=== PATIENT | female | born 1935 | race Caucasian/White ===

== ENCOUNTER 2019-07-09 13:32 | Outpatient (CLI) | payer MEDICARE ==
--- NOTE | 2019-07-09 14:16 | BD ---
EXAM: Bone densitometry using DEXA HISTORY: 83 yo female. Screening for postmenopausal osteoporosis FINDINGS: L1--bone mineral density 1.006 g/sq cm; T score 0.1 L2--bone mineral density 1.090 g/sq cm; T score 0.6 L3--bone mineral density 1.061 g/sq cm; T score -0.2 L4--bone mineral density 1.173 g/sq cm; T score 1.0 Total L1-L4--bone mineral density 1.087 g/sq cm; T score 0.4 Left femoral neck--bone mineral density0.815; T score -0.3 Total proximal left femur--bone mineral density 0.858; T score -0.7 IMPRESSION: Normal BMD.
== END 2019-07-09 13:33 | disposition home or self-care (01) ==
LOC: BICMAMMO 13:32
PROVIDERS: ATTEND Internal Medicine Medical Oncology
DX: Z13.820 Encounter for screening for osteoporosis (principal); T38.6X5A Adverse effect of antigonadotrophins, antiestrogens, antiandrogens, not elsewhere classified, initial encounter; C50.919 Malignant neoplasm of unspecified site of unspecified female breast
CPT/HCPCS: 77080

== ENCOUNTER 2019-09-22 14:29 | Outpatient (CLI) | payer MEDICARE ==
--- NOTE | 2019-09-22 15:19 | MMO ---
Bilateral MAMMO Bilat Diag [facility]IT. CLINICAL HISTORY: Patient is 83 years old and is seen for diagnostic exam. The patient has the following family history of breast cancer: daughter and sister, malignant (generic). The patient has no personal history of cancer. 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 VIEWS: The views performed were: bilateral craniocaudal with tomosynthesis; bilateral mediolateral oblique with tomosynthesis; and bilateral mediolateral with tomosynthesis. FILMS COMPARED: The present examination has been compared to prior imaging studies performed at [facility] on 02/19/2009, 02/22/2010, 03/07/2011 and 12/12/2016. This study has been interpreted with the assistance of computer-aided detection. MAMMOGRAM FINDINGS: There are scattered fibroglandular densities. Finding 1: There is a post-surgical scar seen in the right breast. Finding 2: There are benign appearing calcifications seen in the left breast. There are no suspicious masses, suspicious calcifications, or new areas of architectural distortion. IMPRESSION: THERE IS NO MAMMOGRAPHIC EVIDENCE OF MALIGNANCY. A ROUTINE FOLLOW-UP MAMMOGRAM IN 1 YEAR IS RECOMMENDED. THE RESULTS OF THIS EXAM WERE SENT TO THE PATIENT. ACR BI-RADS Category 2 - Benign finding MAMMOGRAPHY NOTE: 1. A negative mammogram report should not delay a biopsy if a dominant of clinically suspicious mass is present. 2. Approximately 10% to 15% of breast cancers are not detected by mammography. 3. Adenosis and dense breasts may obscure an underlying neoplasm. Reported by: CHRIS HERNANDEZ MD Electonically Signed: [id number]
== END 2019-09-22 14:30 | disposition home or self-care (01) ==
LOC: BICMAMMO 14:29
PROVIDERS: ATTEND Internal Medicine Medical Oncology
DX: C50.411 Malignant neoplasm of upper-outer quadrant of right female breast (principal)
CPT/HCPCS: 77066; G0279

== ENCOUNTER 2019-09-29 08:00 | Outpatient (CLI) | payer MEDICARE ==
[2019-09-29 13:56] LABS: #Basophils 0.1 thou/uL (0.0-0.2); #Eosinphils 0.2 thou/uL (0.0-0.7); #Lymphocytes 2.9 thou/uL (1.20-3.40); #Monocytes 0.7 thou/uL (0.11-0.59); #Neutrophils 4.5 thou/uL (1.40-6.50); %Basophils 1.3 % (0.0-1.0); %Lymphocytes 34.6 % (21.0-51.0); %Monocytes 8.2 % (0.0-10.0); Mean Corpuscular HGB CONC 32.5 g/dL (32.0-36.0); Mean Corpuscular Hemoglobin 31.5 pg (27.0-31.0); Mean Platelet Volume 7.4 fL (7.4-10.4); Platelet Count 289 thou/uL (130-400); RBC Distribution Width 12.4 % (11.5-14.5); Red Blood Cell (RBC) Count 4.77 mill/uL (4.20-5.40); White Blood Cell (WBC) Count 8.3 thou/uL (4.8-10.8)
[2019-09-29 14:46] LABS: Anion Gap 12 mmol/L (10-20); BUN (Urea Nitrogen) 10 mg/dL (9.8-20.1); Calc. Creatinine Clearance 0 mL/min (70-130); Calcium 9.9 mg/dL (7.8-10.44); Carbon Dioxide 29 mmol/L (23-31); Chloride 103 mmol/L (98-107); Estimated GFR-MDRD 66; Glucose 66 mg/dL (83-110); Sodium 140 mmol/L (136-145)
--- NOTE | 2019-09-30 11:09 | EKG ---
Test Reason : Blood Pressure : / mmHG Vent. Rate : 074 BPM Atrial Rate : 074 BPM P-R Int : 138 ms QRS Dur : 114 ms QT Int : 390 ms P-R-T Axes : 081 090 -42 degrees QTc Int : 432 ms Normal sinus rhythm Rightward axis ST elevation consider lateral injury or acute infarct Baseline Artifact Present Abnormal ECG When compared with ECG of 02-JAN-2017 11:32, Questionable change in QRS axis ST more depressed in Inferior leads Non-specific change in ST segment in Lateral leads T wave inversion now evident in Inferior leads Confirmed by DR. Becca BEDOYA ([id number]) on 09/30/2019 11:08:58 AM Referred By: APOLLO Confirmed By:DR. Becca BEDOYA
== END 2019-09-29 08:01 | disposition home or self-care (01) ==
LOC: LABBT 08:00
PROVIDERS: ATTEND Specialist
DX: Z01.818 Encounter for other preprocedural examination (principal); D49.2 Neoplasm of unspecified behavior of bone, soft tissue, and skin
CPT/HCPCS: 80048; 85025; 93005; 93010

== ENCOUNTER 2021-01-26 11:31 | Inpatient (IN) | payer MEDICARE ==
[2021-01-26] MEDS ORDERED: Atropine Sulfate 1 mg/10 ml Syringe ONE (11:47)
[2021-01-26] MEDS ORDERED: Ondansetron PF 4 MG/2 ML Vial ONE (11:47)
[2021-01-26] MEDS ORDERED: Morphine 4 MG/ML VIAL ONE (11:57)
[2021-01-26 12:32] LABS: #Basophils 0.1 thou/uL (0.0-0.2); #Eosinphils 0.1 thou/uL (0.0-0.7); #Lymphocytes 2.5 thou/uL (1.20-3.40); #Monocytes 0.8 thou/uL (0.11-0.59); #Neutrophils 10.4 thou/uL (1.40-6.50); %Basophils 0.9 % (0.0-1.0); %Eosinophils 0.6 % (0.0-10.0); %Monocytes 5.4 % (0.0-10.0); Hemoglobin 14.5 g/dL (12.0-16.0); Mean Corpuscular HGB CONC 32.2 g/dL (32.0-36.0); Mean Corpuscular Hemoglobin 31.6 pg (27.0-31.0); Mean Corpuscular Volume 98.2 fL (78.0-98.0); Mean Platelet Volume 6.6 fL (7.4-10.4); Platelet Count 265 thou/uL (130-400); RBC Distribution Width 12.2 % (11.5-14.5); Red Blood Cell (RBC) Count 4.58 mill/uL (4.20-5.40); White Blood Cell (WBC) Count 13.9 thou/uL (4.8-10.8)
[2021-01-26 12:53] LABS: ALT (SGPT) 34 U/L (8-55); AST (SGOT) 67 U/L (5-34); Albumin 3.7 g/dL (3.4-4.8); Alkaline Phosphatase 56 U/L (40-110); Anion Gap 10 mmol/L (10-20); BUN (Urea Nitrogen) 12 mg/dL (9.8-20.1); Bilirubin, Total 0.9 mg/dL (0.2-1.2); Calc. Creatinine Clearance 0 mL/min (70-130); Calcium 9.4 mg/dL (7.8-10.44); Carbon Dioxide 30 mmol/L (23-31); Chloride 102 mmol/L (98-107); Globulin 2.7 g/dL (2.4-3.5); Glucose 153 mg/dL (83-110); Lipase 22 U/L (8-78); Magnesium 1.9 mg/dL (1.6-2.6); Potassium 4.2 mmol/L (3.5-5.1); Protein, Total 6.4 g/dL (5.8-8.1); Sodium 138 mmol/L (136-145)
[2021-01-26] MEDS ORDERED: Pantoprazole 40 MG VIAL ONE (14:34)
[2021-01-26] MEDS ORDERED: Iopamidol-370 76% 500 ML 1 ML ONE (14:54)
[2021-01-26 15:32] LABS: Bacteria/HPF None Seen HPF (None Seen); Bilirubin Negative (Negative); Blood, Urine 3+ (Negative); Clarity Clear (Clear); Glucose, Urine (Dipstick) Normal (Negative); Ketone, Urine Negative (Negative); Leukocyte Negative Leu/uL (Negative); Nitrite 2+ (Negative); Protein, Urine (Dipstick) Negative (Neg-Trace); RBC/HPF 21-50 HPF (0-3); Squamous Epithelial 0-3 HPF (0-3); Urobilinogen Normal mg/dL (Less than 2); WBC/HPF 0-3 HPF (0-3); pH, Urine 7.5 (5.0-9.0)
[2021-01-26 15:34] LABS: Specific Gravity, Urine 1.047 (1.002-1.036)
[2021-01-26] MEDS ORDERED: Acetaminophen 325 MG TAB PO PRN (16:39)
[2021-01-26] MEDS ORDERED: Ondansetron PF 4 MG/2 ML Vial IVP PRN (16:39)
[2021-01-26] MEDS ORDERED: Sodium Chloride 0.9% (PF) 10 ML VIAL FS PRN (17:00)
[2021-01-26 17:23] VITALS: BMI 21.5
[2021-01-26 18:44] LABS: Troponin I Less than 0.010 ng/mL (< 0.028)
[2021-01-26] MEDS: Pantoprazole 40 MG VIAL IVP SCH (20:58)
[2021-01-26] MEDS ORDERED: Pantoprazole 40 MG VIAL IVP SCH (21:00)
[2021-01-26 21:56] LABS: Troponin I Less than 0.010 ng/mL (< 0.028)
[2021-01-27 01:01] LABS: SARS-CoV-2 PCR NAA for Saliva Not Detected (NotDetected)
[2021-01-27 05:05] LABS: #Basophils 0.1 thou/uL (0.0-0.2); #Eosinphils 0.1 thou/uL (0.0-0.7); #Lymphocytes 3.1 thou/uL (1.20-3.40); %Basophils 0.4 % (0.0-1.0); %Eosinophils 0.9 % (0.0-10.0); %Lymphocytes 25.1 % (21.0-51.0); %Monocytes 8.3 % (0.0-10.0); %Neutrophils 65.3 % (42.0-75.0); Hemoglobin 13.2 g/dL (12.0-16.0); Mean Corpuscular HGB CONC 31.6 g/dL (32.0-36.0); Mean Corpuscular Hemoglobin 30.9 pg (27.0-31.0); Mean Corpuscular Volume 97.7 fL (78.0-98.0); Mean Platelet Volume 6.9 fL (7.4-10.4); Platelet Count 246 thou/uL (130-400); RBC Distribution Width 12.4 % (11.5-14.5); Red Blood Cell (RBC) Count 4.27 mill/uL (4.20-5.40); White Blood Cell (WBC) Count 12.3 thou/uL (4.8-10.8)
[2021-01-27 05:07] LABS: Hemoglobin A1c 5.4 % (4.0-6.0)
[2021-01-27 05:29] LABS: ALT (SGPT) 68 U/L (8-55); AST (SGOT) 59 U/L (5-34); Albumin 3.4 g/dL (3.4-4.8); Alkaline Phosphatase 61 U/L (40-110); Anion Gap 10 mmol/L (10-20); BUN (Urea Nitrogen) 12 mg/dL (9.8-20.1); Bilirubin, Direct 0.3 mg/dL (0.1-0.3); Bilirubin, Total 0.7 mg/dL (0.2-1.2); Calc. Creatinine Clearance 43 mL/min (70-130); Calcium 8.7 mg/dL (7.8-10.44); Carbon Dioxide 28 mmol/L (23-31); Chloride 104 mmol/L (98-107); Glucose 101 mg/dL (83-110); Potassium 4.4 mmol/L (3.5-5.1); Protein, Total 5.7 g/dL (5.8-8.1); Sodium 138 mmol/L (136-145)
[2021-01-27] MEDS: Pantoprazole 40 MG VIAL IVP SCH ×2 (08:34→20:51)
[2021-01-28 05:44] LABS: #Basophils 0.1 thou/uL (0.0-0.2); #Eosinphils 0.1 thou/uL (0.0-0.7); #Lymphocytes 2.6 thou/uL (1.20-3.40); %Basophils 1.2 % (0.0-1.0); %Eosinophils 1.2 % (0.0-10.0); %Lymphocytes 21.4 % (21.0-51.0); %Monocytes 8.8 % (0.0-10.0); %Neutrophils 67.3 % (42.0-75.0); Hemoglobin 13.5 g/dL (12.0-16.0); Mean Corpuscular HGB CONC 32.1 g/dL (32.0-36.0); Mean Corpuscular Hemoglobin 31.4 pg (27.0-31.0); Mean Corpuscular Volume 97.6 fL (78.0-98.0); Mean Platelet Volume 6.8 fL (7.4-10.4); Platelet Count 223 thou/uL (130-400); RBC Distribution Width 12.1 % (11.5-14.5); White Blood Cell (WBC) Count 11.9 thou/uL (4.8-10.8)
[2021-01-28 06:04] LABS: Anion Gap 12 mmol/L (10-20); BUN (Urea Nitrogen) 12 mg/dL (9.8-20.1); Calc. Creatinine Clearance 50 mL/min (70-130); Calcium 8.4 mg/dL (7.8-10.44); Carbon Dioxide 25 mmol/L (23-31); Chloride 105 mmol/L (98-107); Glucose 74 mg/dL (83-110); Potassium 4.3 mmol/L (3.5-5.1); Sodium 138 mmol/L (136-145)
[2021-01-28 06:07] LABS: ALT (SGPT) 45 U/L (8-55); AST (SGOT) 28 U/L (5-34); Albumin 3.4 g/dL (3.4-4.8); Alkaline Phosphatase 59 U/L (40-110); Bilirubin, Direct 0.3 mg/dL (0.1-0.3); Bilirubin, Total 0.9 mg/dL (0.2-1.2); Protein, Total 5.8 g/dL (5.8-8.1)
[2021-01-28] MEDS ORDERED: Anastrozole 1 MG TAB PO SCH (09:00)
[2021-01-28] MEDS: Pantoprazole 40 MG VIAL IVP SCH (09:36)
[2021-01-28 16:29] VITALS: BP 133/60; TEMP 98.5
[2021-01-28] MEDS ORDERED: Atorvastatin Calcium 10 MG TAB PO SCH (21:00)
[2021-01-29] MEDS ORDERED: Calcium Carbonate 600 MG + Vit D TAB PO SCH (09:00)
== END 2021-01-28 18:24 | disposition home or self-care (01) | DRG 392 ==
LOC: ERS 11:31 → 2SW 15:02 → OBSVTOIN 01-27 19:10
PROVIDERS: ADMIT Internal Medicine; ATTEND Internal Medicine
DX: K22.8 Other specified diseases of esophagus (principal); Z20.822 Contact with and (suspected) exposure to COVID-19; K21.00 Gastro-esophageal reflux disease with esophagitis, without bleeding; K80.20 Calculus of gallbladder without cholecystitis without obstruction; R00.1 Bradycardia, unspecified; R94.5 Abnormal results of liver function studies; E78.5 Hyperlipidemia, unspecified; D72.829 Elevated white blood cell count, unspecified; I71.2 Thoracic aortic aneurysm, without rupture; I49.3 Ventricular premature depolarization; E78.00 Pure hypercholesterolemia, unspecified; F17.210 Nicotine dependence, cigarettes, uncomplicated; Z53.20 Procedure and treatment not carried out because of patient's decision for unspecified reasons; T44.7X5A Adverse effect of beta-adrenoreceptor antagonists, initial encounter; K44.9 Diaphragmatic hernia without obstruction or gangrene; Z85.3 Personal history of malignant neoplasm of breast; Z90.11 Acquired absence of right breast and nipple; Z88.8 Allergy status to other drugs, medicaments and biological substances; Z79.82 Long term (current) use of aspirin; Z79.899 Other long term (current) drug therapy; Z79.811 Long term (current) use of aromatase inhibitors; Z90.89 Acquired absence of other organs
CPT/HCPCS: 36415; 71045; 71275; 74174; 76705; 78227; 80048; 80053; 80076; 81003; 81015; 83036; 83690; 83735; 83880; 84484; 85025; 87635; 93005; 96374; 96375; 96376; A9537; C9113; G0378; J0461; J2270; J2405; Q9967; U0003; U0005